=== PATIENT | female | born 1935 | race Caucasian/White ===

== ENCOUNTER 2020-10-13 15:38 | Emergency (ER) | payer OTHER ==
[~2020-10-13] VITALS: Ht 160 cm; Wt 73.5 kg
[2020-10-13 18:00] VITALS: BP 168/70
== END 2020-10-13 18:07 | disposition home or self-care (01) ==
LOC: ER 15:38
DX: S01.01XA Laceration without foreign body of scalp, initial encounter (principal); W01.198A Fall on same level from slipping, tripping and stumbling with subsequent striking against other object, initial encounter; Y93.89 Activity, other specified; Y92.128 Other place in nursing home as the place of occurrence of the external cause; Y99.8 Other external cause status